=== PATIENT | female | born 2005 | race Two or more races ===

== ENCOUNTER → 2024-03-19 | Outpatient (CLI) | payer OTHER ==
--- NOTE | 2024-03-19 15:21 | US ---
EXAMINATION TYPE: US liver DATE OF EXAM: 03/19/2024 COMPARISON: NONE CLINICAL INDICATION: Female, 18 years old with history of R74.01 Abnormal labs; TECHNIQUE: Multiple sonographic images of the right upper quadrant are obtained. 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 Diffusely increased echogenicity of the liver with poor penetration of the ultrasound. This appearance limits evaluation for intrahepati c masses. No gross evidence of mass. Noncirrhotic morphology. Gallbladder is within normal limits wit hout evidence of wall thickening, cholelithiasis, or surrounding fluid. Negative sonographic Broussard's sign. Common bile duct is within normal limits. Right kidney demonstrates no evidence of hydronephro sis, nephrolithiasis, or solid mass. IMPRESSION: Findings most consistent with hepatic steatosis.
== END | disposition home or self-care (01) ==
LOC: RADUSWWP 13:22
PROVIDERS: ATTEND Internal Medicine Gastroenterology
DX: R74.01 Elevation of levels of liver transaminase levels (principal); K76.0 Fatty (change of) liver, not elsewhere classified
CPT/HCPCS: 76705

== ENCOUNTER 2024-03-26 06:33 | Day surgery (SDC) | payer OTHER ==
[2024-03-26 07:03] VITALS: RESP 16; TEMP 97.7
[2024-03-26] MEDS: LACTATED RINGERS 1,000 ML IV SCH (07:12)
[2024-03-26] MEDS: LIDOCAINE 1% (10MG/ML) FOR IV START INTRADERMA ONE (07:13)
[2024-03-26] MEDS: IV FLUID CONTINUATION 1,000 ML IV ONE (07:13)
[2024-03-26] MEDS ORDERED: MIDAZOLAM 2 MG/2 ML VIAL ONE (07:23)
[2024-03-26] MEDS ORDERED: LIDOCAINE 1% INJ 10MG/ML (20 ML MDV) ONE (07:23)
[2024-03-26] MEDS ORDERED: PROPOFOL 10 MG/ML 20 ML VIAL IV ONE (07:23)
[2024-03-26] MEDS ORDERED: fentaNYL (PF) 50 MCG/ML 2 ML AMP ONE (07:23)
--- NOTE | 2024-03-26 07:42 | P.PCN ---
Date of Procedure: 03/26/24 Procedure(s) Performed: Brief history: Patient is a pleasant 18-year-old female scheduled for an elective upper endoscopy as well as colonoscopy as a part of evaluation of right upper quadrant abdominal pain and intermittent rectal bleeding for the last few months duration. Procedure performed: Esophagogastroduodenoscopy with biopsy Colonoscopy Preoperative diagnosis: Right upper quadrant abdominal pain Intermittent rectal bleeding Anesthesia: MAC Procedure: After informed consent was obtained from the patient was brought into the endoscopy unit and IV sedation was administered by anesthesia under continuous monitoring. Initially upper endoscopy was done. The Olympus GF 160 video endoscope was inserted inserted into the mouth and esophagus intubated without any difficulty and was gradually advanced into the stomach and duodenum and carefully examined. The bulb and second part of the duodenum appeared normal. To evaluate for celiac disease. The scope was then withdrawn into the stomach adequately insufflated with air and upon careful examination the antrum continued use of erythema consistent with gastritis and biopsies were done from this area. Mucosa body, cardia and fundus appeared normal. The scope was then withdrawn into the esophagus. The GE junction was located at 40 cm to the incisors. It appeared regular with no erythema erosions or ulcerations. Rest of the esophagus appeared normal. Patient tolerated the procedure well. At this time the patient continued to remain sedation. Initial digital rectal examination was normal. Olympus CF 160 video colonoscope was then inserted into the rectum and gradually advanced to the cecum without any difficulty. Careful examination was performed as the scope was gradually being withdrawn. The prep was excellent. Terminal ileum was intubated in 20 cm visualized and appeared normal. The cecum, ascending colon, transverse colon, descending colon, sigmoid colon and rectum appeared normal. Retroflexion was performed in the rectum and no lesions were noted. Patient tolerated the procedure well. Impression: 1. Upper endoscopy revealed mild antral gastritis but no evidence of esophagitis or peptic ulcer disease 2. Colonoscopy was within normal limits with no evidence of colitis or colorectal neoplasia. Recommendations: Findings of this examination were discussed with the patient as well as family. She was advised to follow-up with the biopsy results. Recommend a high-fiber diet and fiber supplements on a regular basis and avoid straining and constipation. She will be seen in the office in 2 weeks.
[2024-03-26 08:16] VITALS: PULSE 74
[2024-03-26 08:34] VITALS: BP 111/67
== END 2024-03-26 09:06 | disposition home or self-care (01) ==
LOC: ORWHC2ENDO 06:33
PROVIDERS: ATTEND Internal Medicine Gastroenterology
DX: K29.50 Unspecified chronic gastritis without bleeding (principal); F31.9 Bipolar disorder, unspecified; Z79.899 Other long term (current) drug therapy
CPT/HCPCS: 81025; 88305; 45378; 43239; J2250; J2001; J3010; J2704